=== PATIENT | female | born 1955 | race Caucasian/White ===

== ENCOUNTER 2017-01-05 14:46 | Emergency (ER) | payer MEDICAID ==
[~2017-01-05] VITALS: Ht 154.9 cm; Wt 74.4 kg
[~2017-01-05 14:46] MED LIST: BUPROPION HCL100 M1 PO; FAMOTIDINE40 MG/5 ML PO; INVEGA1.5 MG PO; LEVOTHYROXINE PO; OLANZAPINE10 M1 PO
[2017-01-05 15:15] VITALS: BP 138/56
--- NOTE | 2017-01-05 15:22 | NUR ---
Patient to [facility].
--- NOTE | 2017-01-05 15:25 | NUR ---
Dr. Ness evaluating patient.
[2017-01-05] MEDS ORDERED: FLUORESCEIN OPTH STRIP 1 MG ONE (15:34)
[2017-01-05] MEDS ORDERED: TETRACAINE 0.5% OPTH SOL 2 ML BTL ONE (15:38)
--- NOTE | 2017-01-05 15:51 | NUR ---
PATIENT PRESENTS TO ED DUE LEFT EYE REDNESS X 1 MONTH . DENIES N/V/D; SKIN IS PINK/WARM/DRY; AAOX4 WITH EVEN AND STEADY GAIT; LUNGS CLEAR BL; HR EVEN AND REGULAR; PT DENIES ANY FEVER, CP, SOB, OR COUGH AT THIS TIME; PATIENT STATES PAIN OF 4/10 AT THIS TIME; PATIENT POSITIONED FOR COMFORT; HOB ELEVATED; NOTED REDNESS ON THE LEFT EYE SCLERA, NO DRAINAGE NOTED ON THE LFET EYE, PT CALM, AAO.
[2017-01-05 15:58] VITALS: BP 142/71
--- NOTE | 2017-01-05 15:59 | NUR ---
Patient discharged with v/s stable. Written and verbal after care instructions given and explained. Patient verbalized understanding. Ambulatory with steady gait. All questions addressed prior to discharge. Advised to follow up with PMD.PT HAS AN APPOINTMENT THIS WEEK FROM HIS PRIMARY AND INSTRUCTED TO FOLLOW UP AND PT AND CAREGIVER AGREED WITH IT.
== END 2017-01-05 15:59 | disposition home or self-care (01) ==
LOC: MED 14:46
DX: H11.32 Conjunctival hemorrhage, left eye (principal)